=== PATIENT | female | born 2000 | race Two or more races ===

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

== ENCOUNTER 2019-07-30 14:35 | Emergency (ER) | payer MEDICAID ==
[~2019-07-30] VITALS: Ht 170.2 cm; Wt 72.6 kg
[2019-07-30] MEDS ORDERED: ACETAMINOPHEN 325 MG TAB PO ONE (14:45)
[2019-07-30 17:01] VITALS: BP 101/64
== END 2019-07-30 17:53 | disposition home or self-care (01) ==
LOC: ER 14:35
DX: J06.9 Acute upper respiratory infection, unspecified (principal); R51 Headache